=== PATIENT | male | born 1990 | race Caucasian/White ===

== ENCOUNTER 2018-12-14 13:46 | Emergency (ER) | payer BC ==
[2018-12-14] MEDS ORDERED: Ketorolac Tromethamine 30 MG/ML VIAL ONE (14:38)
[2018-12-14 14:46] LABS: Bilirubin Negative (Negative); Blood, Urine Negative (Negative); Clarity Clear (Clear); Glucose, Urine (Dipstick) Negative (Negative); Leukocyte Negative (Negative); Nitrite Negative (Negative); Protein, Urine (Dipstick) Negative (Neg-Trace); Urobilinogen 0.2 mg/dL (0.2-1.0)
[2018-12-14 14:56] LABS: Bacteria/HPF Rare-Few HPF (None Seen); RBC/HPF None Seen HPF (0-3); Squamous Epithelial None Seen HPF (0-3); WBC/HPF None Seen HPF (0-3)
--- NOTE | 2018-12-14 15:02 | ULT ---
Exam: Testicular ultrasound HISTORY: Testicular pain, worse on the left side COMPARISON: None TECHNIQUE: Sagittal and transverse imaging of the left and right hemiscrotum are performed. Testicula r Doppler is performed with grayscale, color-flow, Doppler imaging and spectral waveform analysis. FINDINGS: Right hemiscrotum: Testicle: Homogeneous echotexture. No intratesticular masses. Right testicle measurements: 2.0 x 4.1 x 2.6 cm Right epididymis: Normal echotexture. Right epididymis measurements: 0.8 x 0.7 cm Hydrocele: None Left hemiscrotum: Left testicle: Homogeneous echotexture. No intratesticular masses. Left testicle measurements: 3.9 x 2.6 x 1.9 cm Left epididymis: Normal echotexture. Left epididymis measurements:0.8 x 0.4 cm Hydrocele: None Testicular Doppler: There is symmetric vascular flow to the left and right testicle. . IMPRESSION: Unremarkable testicular ultrasound.
== END 2018-12-14 15:19 | disposition home or self-care (01) ==
LOC: SCSER 13:46
DX: M54.5 Low back pain (principal)
CPT/HCPCS: 76870; 81001; 93976; 96372; J1885